=== PATIENT | female | born 1970 | race Caucasian/White ===

== ENCOUNTER → 2021-10-17 | Outpatient (CLI) | payer BC ==
[2021-10-17 13:29] VITALS: BP 119/85; PULSE 76; TEMP 98.2; BMI 31.6
--- NOTE | 2021-10-17 15:29 | P.HPBAR ---
Bariatric H&P - History & Physicial H&P Date: 10/17/21 History & Physicial: Visit/CC: sleeve f/u Patient initial contact: Initial weight: Initial weight in pounds: Height: 5 ft 5 in Initial BMI: Last weight: Current weight: 86.183 kg Current weight in pounds: 190.00 Current BMI: 31.6 [place] body weight (based on NIH guidelines): 56.699 kg Excess body weight loss: The patient is a 50 year-old F who presents for Bariatric Assessment. Meri khalil presents today for bariatric follow. She's not been seen several years. Patient states she is gained approximate 40 pounds. She has issues with GERD. Patient appears history of peptic ulcer disease. She appears the LAP-BAND was converted to sleeve gastrectomy. Past Medical History Past Medical History: No Reported History History of Any Multi-Drug Resistant Organisms: None Reported Past Surgical History: Bariatric Surgery, Breast Surgery, Cholecystectomy, Hernia Repair Additional Past Surgical History / Comment(s): lap band 2003. gastric sleeve 2013. breast reduction 2014 Past Anesthesia/Blood Transfusion Reactions: Postoperative Nausea & Vomiting (PONV) Past Psychological History: Depression Smoking Status: Never smoker Past Alcohol Use History: Occasional Past Drug Use History: None Reported Surgical - Exam Vital Signs Temp Pulse BP 98.2 F 76 119/85 10/17/21 13:21 10/17/21 13:21 10/17/21 13:21 - General well developed, well nourished, no distress - Eyes PERRL - ENT normal pinna - Neck no masses - Respiratory normal expansion - Cardiovascular Rhythm: regular - Abdomen Abdomen: soft, non tender Bariatric Assessment & Plan Plan: Patient has GERD. She'll undergo esophagram EGD. She'll follow-up after this performed. Bariatric Checklist Checklist: Plan: Checklist: EGD: 1. Hiatal hernia: 2. H. Pylori: HgbA1c: Vitamin D: Smoking: Primary care physician referral: Dr. Manning Psychiatry clearance: Cardiology clearance: Sleep study: Diet journal: VTE risk score: VTE risk level: Rehab needs at discharge:
--- NOTE | 2021-10-17 15:36 | FL ---
EXAMINATION TYPE: FL barium swallow DATE OF EXAM: 10/17/2021 COMPARISON: No post gastric sleeve images at this location. HISTORY: Gastric sleeve TECHNIQUE: A single contrast UGI study is performed. FINDINGS: Contrast passes from the distal esophagus through the gastric sleeve with no significant he sitancy. No extravasation of contrast is evident. Contrast passes through the gastric sleeve without difficulty. Early spill is identified into the duodenum. Contrast extends into the normal proximal du odenum. IMPRESSIONS: 1. No stenosis through the gastric sleeve.
== END ==
LOC: BARWHC3 13:14
PROVIDERS: ATTEND Surgery
DX: Z09 Encounter for follow-up examination after completed treatment for conditions other than malignant neoplasm (principal); K21.9 Gastro-esophageal reflux disease without esophagitis; Z98.84 Bariatric surgery status; F32.A Depression, unspecified
CPT/HCPCS: 74220; 99211

== ENCOUNTER → 2021-11-09 | Outpatient (CLI) | payer BC ==
[2021-11-09 15:52] VITALS: BP 114/76; PULSE 82; TEMP 98.5; BMI 31.8
--- NOTE | 2021-11-09 16:15 | P.HPBAR ---
Bariatric H&P - History & Physicial H&P Date: 11/09/21 History & Physicial: Visit/CC: bypass new patient consult Patient initial contact: Initial weight: Initial weight in pounds: Height: 5 ft 5 in Initial BMI: Last weight: Current weight: 86.636 kg Current weight in pounds: 191.00 Current BMI: 31.8 [place] body weight (based on NIH guidelines): 56.699 kg Excess body weight loss: The patient is a 51 year-old F who presents for Bariatric Assessment. She had the band, then sleeve, including hernia repair. She had injury in 2020 and has back pain. She has gained weight. She has severe GERD. She is taking prilosec TID. She reports weight gain and is looking for weight loss. She on different prescription from her PCP. She had another PCP do all of her surgeries. She had panniculectomy. She had ulcers in her stomach. Dr. Kwok did her scope. She has esophagitis. She has troubles with her band and had prolapse from her band and switched to a sleeve. 2003 to 2013, band then sleeve. Her lowest weight was 119 pounds with the sleeve. Highest weight was 320 pounds. She is looking the gastric bypass. Blood pressure is normal. She is re-checked height 5'4.5. BMI 35.5 of 210 to 215 pounds. Medical supervised. Past Medical History Past Medical History: GERD/Reflux Additional Past Medical History / Comment(s): ulcer, IBS, History of Any Multi-Drug Resistant Organisms: None Reported Past Surgical History: Bariatric Surgery, Breast Surgery, Cholecystectomy, Hernia Repair Additional Past Surgical History / Comment(s): lap band/ lap band removal , gastric sleeve ,zackary breast reduction, tummy tuck Past Anesthesia/Blood Transfusion Reactions: Motion Sickness, Postoperative Nausea & Vomiting (PONV) Past Psychological History: Depression Smoking Status: Never smoker Past Alcohol Use History: Occasional Past Drug Use History: None Reported - Past Family History Mother Family Medical History: Cancer Surgical - Exam Vital Signs Temp Pulse BP 98.5 F 82 114/76 11/09/21 15:47 11/09/21 15:47 11/09/21 15:47 Bariatric Checklist Checklist: Plan: Checklist: EGD: 1. Hiatal hernia: 2. H. Pylori: HgbA1c: Vitamin D: Smoking: Primary care physician referral: Dr. Manning Psychiatry clearance: Cardiology clearance: Sleep study: Diet journal: VTE risk score: VTE risk level: Rehab needs at discharge:
== END | disposition home or self-care (01) ==
LOC: BARWHC3 15:37
PROVIDERS: ATTEND Surgery Plastic and Reconstructive Surgery
DX: E66.01 Morbid (severe) obesity due to excess calories (principal); K21.9 Gastro-esophageal reflux disease without esophagitis; Z68.31 Body mass index [BMI] 31.0-31.9, adult
CPT/HCPCS: 99211